=== PATIENT | female | born 1955 | race Caucasian/White ===

== ENCOUNTER 2017-10-25 12:06 | Emergency (ER) | payer BC, OTHER ==
[2017-10-25 12:50] VITALS: BMI 27.3
[2017-10-25 12:54] VITALS: BP 116/74; PULSE 78; RESP 18; TEMP 98.3; O2SAT 100
--- NOTE | 2017-10-25 13:22 | RAD ---
PROCEDURE: Radiographs of the foot and 5th toe HISTORY: right distal fifth toe pain COMPARISON: None TECHNIQUE: AP, oblique and lateral radiographs were obtained. FINDINGS: There is no acute displaced fracture or bone destruction. Bone alignment and mineralization are normal. The joint spaces are preserved. The periarticular soft tissues are normal. IMPRESSION: No acute fracture or dislocation.
--- NOTE | 2017-10-25 13:43 | C.PDOC ---
History Of Present Illness 62 y/o female presents complaining of right foot pain for 30 days. States the pain has not been improving so she came in today. No injury or fall. Not taking any medications for current symptoms. No changes in sensation. Time Seen by Provider: 10/25/17 12:44 Chief Complaint (Nursing): Lower Extremity Problem/Injury History Per: Patient History/Exam Limitations: no limitations Onset/Duration Of Symptoms: Days (x30) Current Symptoms Are (Timing): Still Present Past Medical History Reviewed: Historical Data, Nursing Documentation, Vital Signs Vital Signs: Last Vital Signs Temp 98.3 F 10/25/17 12:35 Pulse 78 10/25/17 12:35 Resp 18 10/25/17 12:35 BP 116/74 10/25/17 12:35 Pulse Ox 100 10/25/17 14:50 - Medical History PMH: No Chronic Diseases Surgical History: No Surg Hx Family History: States: No Known Family Hx - Social History Hx Alcohol Use: No Hx Substance Use: No - Immunization History Hx Tetanus Toxoid Vaccination: No Hx Influenza Vaccination: No Hx Pneumococcal Vaccination: No Review Of Systems Except As Marked, All Systems Reviewed And Found Negative. Musculoskeletal: Positive for: Foot Pain Physical Exam - Physical Exam Appears: Non-toxic, No Acute Distress Skin: Normal Color, Warm, Dry Extremity: Tenderness (Mild tenderness to the increased skin formation at the base of distal right metatarsal), No Swelling (or cellulitic component), Other ( neurovascularly intact) Pulses: Left Dorsalis Pedis: Normal, Right Dorsalis Pedis: Normal Neurological/Psych: Oriented x3, Normal Speech, Normal Motor, Normal Sensation ED Course And Treatment O2 Sat by Pulse Oximetry: 100 (RA) Pulse Ox Interpretation: Normal - Other Rad x-ray right foot X-Ray: Viewed By Me, Read By Radiologist Interpretation: FINDINGS: There is no acute displaced fracture or bone destruction. Bone alignment and mineralization are normal. The joint spaces are preserved. The periarticular soft tissues are normal. IMPRESSION: No acute fracture or dislocation. Medical Decision Making Medical Decision Making: Impression: Foot pain Time: 12:55 Initial Plan: --X-ray right foot --Motrin 600 mg PO --Reevaluation X-ray is negative for fracture or dislocation. On reevaluation, pain is controlled and patient is resting comfortably. Discussed case w/ podiatry resident, who recommends patient call to make a follow up appointment next Tuesday10/31/17 in the podiatry clinic Patient is understanding of discharge plan. Stable for d/c home. Disposition Counseled Patient/Family Regarding: Studies Performed, Diagnosis, Need For Followup, Rx Given - Disposition Referrals: [facility] [Outside] [facility] [Outside] Disposition: HOME/ ROUTINE Disposition Time: 13:40 Condition: STABLE Additional Instructions: follow up with podiatry clinic on 10/27/17, 12-3p you must call to make an appointment take pain medication as needed return to ER if symptoms worsens or progress Prescriptions: Naproxen [Naprosyn] 500 mg PO BID PRN #16 tab PRN Reason: Pain, Moderate (4-7) Instructions: Corns and Calluses Forms: [facility] ([place]), General Discharge Instructions - POA Present On Arrival: None - Clinical Impression Clinical Impression: Callus of foot - Scribe Statement The provider has reviewed the documentation as recorded by the Scribe (Sowmya Morales) Provider Attestation: All medical record entries made by the Scribe were at my direction and personally dictated by me. I have reviewed the chart and agree that the record accurately reflects my personal performance of the history, physical exam, medical decision making, and the department course for this patient. I have also personally directed, reviewed, and agree with the discharge instructions and disposition.
== END 2017-10-25 14:16 | disposition home or self-care (01) ==
LOC: C.ER 12:06
DX: L84 Corns and callosities (principal)